=== PATIENT | male | born 1960 | race Caucasian/White ===

== ENCOUNTER 2016-08-09 22:55 | Emergency (ER) | payer OTHER, BC ==
[~2016-08-09] VITALS: Ht 193 cm; Wt 120.0 kg
[2016-08-09 22:59] VITALS: BP 171/99; PULSE 106; RESP 18; TEMP 98.3; O2SAT 97
[2016-08-09] MEDS ORDERED: TETANUS/DIPHTHERIA TOXOID ADULT 0.5 ML VIAL IM ONE (23:15)
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
[2016-08-10] MEDS ORDERED: HYDR-3366 PO (01:00)
[2016-08-10] MEDS ORDERED: IBUPROFEN 600 MG TAB PO ONE (01:00)
--- NOTE | 2016-08-10 01:02 | PD ---
Physical Exam Date Seen by Provider: Aug 10, 2016 Time Seen by Provider: 01:00 Data Data Last Documented VS Vital Signs Date Time Temp Pulse Resp B/P Pulse Ox O2 Delivery O2 Flow Rate FiO2 08/09/16 23:01 97 Room Air 08/09/16 22:59 98.3 106 18 171/99 Orders Chest, Single Ap (08/09/16 ) Knee, Complete (4vws) (08/09/16 ) Pelvis, Ap Only (Routine) (08/09/16 ) Elbow, Complete (4 Vws) (08/09/16 ) Tetanus/Diphtheria Tox Adult (Tetanus/Di (08/09/16 23:15) Ibuprofen (Motrin) (08/10/16 01:00) MDM Medical Record Reviewed: Yes Supervised Visit with SCAR: Yes Differential Diagnosis MDM: High Differential diagnoses: Fracture, sprain, strain, dislocation, contusion, neurovascular injury Narrative Course I was asked to perform wound care on this patient's left elbow. Procedures Procedure Narrative Left elbow laceration: The left elbow was prepped and draped in usual sterile fashion using Betadine. 1% lidocaine with epinephrine used to anesthetize the avulsion sites. The contused and necrotic tissue are sharply debrided using iris scissors. The wound is irrigated with saline. The lacerations are nonsuturable. Patient Instructions: General Instructions, Narcotic given in the ED Med/Other Pt SpecificInfo: Prescription(s) given, Wound Care Scripts No Active Prescriptions or Reported Meds Disposition: 01 DISCHARGE HOME Condition: Stable Hemanth Huggins Aug 10, 2016 01:02
[2016-08-10 01:26] VITALS: BP 165/88
== END 2016-08-10 01:33 | disposition home or self-care (01) ==
LOC: NEPC 22:55
DX: S51.012A Laceration without foreign body of left elbow, initial encounter (principal); S80.211A Abrasion, right knee, initial encounter; S70.212A Abrasion, left hip, initial encounter; V29.60XA Unspecified motorcycle rider injured in collision with unspecified motor vehicles in traffic accident, initial encounter; Z23 Encounter for immunization
CPT/HCPCS: 71010; 72170; 73080; 73564; 90471; 90714